=== PATIENT | female | born 1955 | race Caucasian/White ===

== ENCOUNTER 2017-01-13 16:48 | Observation (INO) | payer MEDICARE, MEDICAID ==
[2017-01-13] MEDS ORDERED: TYLENOL325 M2 PO (20:17)
[2017-01-13] MEDS ORDERED: XANAX0.25 M1 PO (20:17)
[2017-01-13] MEDS ORDERED: LIPITOR40 M1 PO (20:18)
[2017-01-13] MEDS ORDERED: ASPIRIN81 M1 PO (20:18)
[2017-01-13] MEDS ORDERED: OS-CAL 500+D31 EAC1 PO (20:19)
[2017-01-13] MEDS ORDERED: BISCOLAX10 MG PR (20:20)
[2017-01-13] MEDS ORDERED: COREG6.25 M1 PO (20:21)
[2017-01-13] MEDS ORDERED: COMBIVENT RESPIM4 G1 INH (20:21)
[2017-01-13] MEDS ORDERED: PLAVIX75 M1 PO (20:21)
[2017-01-13] MEDS ORDERED: MEGESTROL ACETA40 M1 PO (20:22)
[2017-01-13] MEDS ORDERED: MILK OF MAGNESIA PO (20:23)
[2017-01-13] MEDS ORDERED: PROTONIX40 M2 PO (20:23)
[2017-01-13] MEDS ORDERED: ZOLOFT50 M1 PO (20:24)
[2017-01-13] MEDS ORDERED: POTASSIUM CHLO10 ME2 PO (20:24)
[2017-01-13] MEDS ORDERED: SYSTANE BALANCE10 M1 EACH EYE (20:26)
[2017-01-13] MEDS ORDERED: DEMADEX20 M1 PO (20:27)
[2017-01-13] MEDS ORDERED: VESICARE10 M1 PO (20:27)
[2017-01-14 06:52] LABS: ALB/GLOB RATIO 1.1 (0.8-2.0); ALBUMIN 3.4 g/dl (3.5-5.0); ALKALINE PHOSPHATASE 101 U/L (33-138); ALT/SGPT 26 U/L (12-78); BILIRUBIN,TOTAL 1.6 mg/dl (0-1.5); BLOOD UREA NITROGEN 32 mg/dl (6-24); CALCIUM 8.5 mg/dl (8.5-10.5); CARBON DIOXIDE-VENOUS 23 mmol/L (22-32); CHLORIDE 109 mmol/l (96-110); CREATININE 2.07 mg/dl (0.50-1.10); GLUCOSE 89 mg/dL (70-110); SODIUM 145 mmol/L (135-145); eGFR VALUE FOR BLACK 29 mL/Min
[2017-01-14 06:58] LABS: ANION GAP 17 mmol/L (0-20); AST/SGOT 44 U/L (10-40); MAGNESIUM 2.4 mg/dl (1.3-2.6); POTASSIUM 3.9 mmol/L (3.7-5.1)
[2017-01-14] MEDS ORDERED: ELIQUIS5 M1 PO ×2 (14:44→14:45)
== END 2017-01-14 15:30 ==
LOC: CAR1 16:48
PROVIDERS: ADMIT Internal Medicine Cardiovascular Disease
DX: I13.0 Hypertensive heart and chronic kidney disease with heart failure and stage 1 through stage 4 chronic kidney disease, or unspecified chronic kidney disease (principal); I50.33 Acute on chronic diastolic (congestive) heart failure; N18.4 Chronic kidney disease, stage 4 (severe); N17.9 Acute kidney failure, unspecified; E78.5 Hyperlipidemia, unspecified; G47.33 Obstructive sleep apnea (adult) (pediatric); J44.9 Chronic obstructive pulmonary disease, unspecified; E66.01 Morbid (severe) obesity due to excess calories; R79.89 Other specified abnormal findings of blood chemistry; I25.118 Atherosclerotic heart disease of native coronary artery with other forms of angina pectoris; Z68.44 Body mass index [BMI] 60.0-69.9, adult; Z79.02 Long term (current) use of antithrombotics/antiplatelets; Z79.82 Long term (current) use of aspirin; Z79.899 Other long term (current) drug therapy; Z88.0 Allergy status to penicillin; Z87.891 Personal history of nicotine dependence; Z98.890 Other specified postprocedural states
CPT/HCPCS: A9540; A9558; G0378; G0379; G8978-GO-CK; G8978-GP-CK; G8979-GO-CJ; G8979-GO-CK; G8979-GP-CK; G8980-GO-CK; G8980-GP-CK; J1940